=== PATIENT | male | born 1965 | race American Indian/Alaskan Native ===

== ENCOUNTER 2018-11-07 14:57 | Emergency (ER) | payer MEDICARE, OTHER ==
--- NOTE | 2018-11-07 15:16 | Emergency Department Report ---
Blank Doc - Documentation Documentation: This is a 53-year-old male that presents with left elbow pain and swelling. Hx of gout. Denies any trauma. This initial assessment/diagnostic orders/clinical plan/treatment(s) is/are subject to change based on patient's health status, clinical progression and re- assessment by fellow clinical providers in the ED. Further treatment and workup at subsequent clinical providers discretion. Patient/guardians urged not to elope from the ED as their condition may be serious if not clinically assessed and managed. Initial orders include: 1- Patient sent to [facility] for further evaluation and treatment
--- NOTE | 2018-11-07 17:40 | Emergency Department Report ---
ED Extremity Problem HPI - General Chief complaint: Extremity Injury, Upper Stated complaint: L ELBOW PAIN/SWOLLEN Time Seen by Provider: 11/07/18 15:15 Source: patient Mode of arrival: Ambulatory Limitations: No Limitations - History of Present Illness Initial comments: Patient is a 53-year-old male who presents emergency room with complaints of left elbow pain and edema that began 2 days ago. He states he has a past medical history of gout and last had a flare 3 months ago in his foot. He does not report any fever, injury, trauma, fall, numbness or weakness. He denies any allergies to medications. He has a past medical history of HTN and NM. - Related Data Home Medications Medication Instructions Recorded Confirmed Last Taken Fluticasone [Flonase] 1 spray INTRANASAL QDAY 02/19/18 02/19/18 02/18/18 10:00 50mcq Lisinopril [Zestril] 40 day PO QDAY 02/19/18 02/19/18 02/18/18 10:00 amLODIPine 40 tab PO QDAY 02/19/18 02/19/18 02/18/18 10:00 Previous Rx's Medication Instructions Recorded Last Taken Type Aspirin EC 325 mg PO QDAY #30 tablet 02/21/18 Unknown Rx AtorvaSTATin [Lipitor] 40 mg PO QHS #30 tablet 02/21/18 Unknown Rx Clopidogrel [Plavix] 75 mg PO QDAY #30 tablet 02/21/18 Unknown Rx Metoprolol [Lopressor TAB] 50 mg PO BID #60 tablet 02/21/18 Unknown Rx Colchicine 0.6 mg PO DAILY 1 Days #3 capsule 11/07/18 Unknown Rx Indomethacin 50 mg PO TID #15 capsule 11/07/18 Unknown Rx predniSONE [Deltasone] 40 mg PO QDAY 5 Days #10 tab 11/07/18 Unknown Rx Allergies Allergy/AdvReac Type Severity Reaction Status Date / Time tuberculin,PPD,multi-puncture Allergy Rash Verified 02/19/18 05:26 ED Review of Systems ROS: Stated complaint: L ELBOW PAIN/SWOLLEN Other details as noted in HPI Comment: All other systems reviewed and negative ED Past Medical Hx - Past Medical History Hx Hypertension: Yes Hx Heart Attack/AMI: Yes (cardiac stent 2010) Hx Congestive Heart Failure: No Hx Diabetes: Yes Hx Asthma: No Hx COPD: No Additional medical history: Elevated Cholesterol - Surgical History Hx Coronary Stent: Yes (stent 2 in 2010) - Social History Smoking Status: Never Smoker Substance Use Type: Alcohol - Medications Home Medications: Home Medications Medication Instructions Recorded Confirmed Last Taken Type Fluticasone [Flonase] 1 spray INTRANASAL QDAY 02/19/18 02/19/18 02/18/18 10:00 History 50mcq Lisinopril [Zestril] 40 day PO QDAY 02/19/18 02/19/18 02/18/18 10:00 History amLODIPine 40 tab PO QDAY 02/19/18 02/19/18 02/18/18 10:00 History Aspirin EC 325 mg PO QDAY #30 tablet 02/21/18 Unknown Rx AtorvaSTATin [Lipitor] 40 mg PO QHS #30 tablet 02/21/18 Unknown Rx Clopidogrel [Plavix] 75 mg PO QDAY #30 tablet 02/21/18 Unknown Rx Metoprolol [Lopressor TAB] 50 mg PO BID #60 tablet 02/21/18 Unknown Rx Colchicine 0.6 mg PO DAILY 1 Days #3 capsule 11/07/18 Unknown Rx Indomethacin 50 mg PO TID #15 capsule 11/07/18 Unknown Rx predniSONE [Deltasone] 40 mg PO QDAY 5 Days #10 tab 11/07/18 Unknown Rx ED Physical Exam - General Limitations: No Limitations General appearance: alert, in no apparent distress - Head Head exam: Present: atraumatic, normocephalic - Eye Eye exam: Present: normal appearance - ENT ENT exam: Present: mucous membranes moist - Extremities Exam Extremities exam: Present: other (edema to the left elbow with small amount of erythema, TTP over the left olecranon process, FROM of the left elbow with some discomfort with flexion, no increased warmth ) - Neurological Exam Neurological exam: Present: alert, oriented X3 - Psychiatric Psychiatric exam: Present: normal affect, normal mood - Skin Skin exam: Present: warm, dry, intact ED Course Vital Signs 11/07/18 11/07/18 11/07/18 15:03 15:06 17:44 Temperature 98.4 F Pulse Rate 85 81 Respiratory 16 16 Rate Blood Pressure 173/113 Blood Pressure 139/91 140/90 [Right] O2 Sat by Pulse 96 99 Oximetry ED Medical Decision Making - Lab Data Vital Signs 11/07/18 11/07/18 11/07/18 15:03 15:06 17:44 Temperature 98.4 F Pulse Rate 85 81 Respiratory 16 16 Rate Blood Pressure 173/113 Blood Pressure 139/91 140/90 [Right] O2 Sat by Pulse 96 99 Oximetry - Medical Decision Making Patient is a 53-year-old male who presents emergency room with complaints of left elbow pain and edema that began 2 days ago. He states he has a past medical history of gout and last had a flare 3 months ago in his foot. He does not report any fever, injury, trauma, fall, numbness or weakness. He denies any allergies to medications. He has a past medical history of HTN and NM. on exam: edema to the left elbow with small amount of erythema, TTP over the left olecranon process, FROM of the left elbow with some discomfort with flexion, no increased warmth. examination consistent with gout present in the left elbow, pt has ROM of the joint, unlikely to be septic joint given no increased warmth and mobility. pt given prescription for indomethacin, colchicine, and prednisone. advised to please take medication as prescribed. Follow up with your primary care doctor in the next 2-3 days for reevaluation. Return to the emergency room for any new or worsening symptoms. - Differential Diagnosis gout, bursitis, arthritis, septic arthritis Critical care attestation.: If time is entered above; I have spent that time in minutes in the direct care of this critically ill patient, excluding procedure time. ED Disposition Clinical Impression: Gout of left elbow Qualifiers: Gout etiology: unspecified cause Chronicity: acute Qualified Code(s): M10.9 - Gout, unspecified Disposition: DC-01 TO HOME OR SELFCARE Is pt being admited?: No Does the pt Need Aspirin: No Condition: Stable Instructions: Acute Gouty Arthritis (ED) Additional Instructions: Please take medication as prescribed. Follow up with your primary care doctor in the next 2-3 days for reevaluation. Return to the emergency room for any new or worsening symptoms. Prescriptions: Colchicine 0.6 mg PO DAILY 1 Days #3 capsule predniSONE [Deltasone] 40 mg PO QDAY 5 Days #10 tab Indomethacin 50 mg PO TID #15 capsule Referrals: PRIMARY CARE, [Referring] - 2-3 Days Time of Disposition: 17:37 Print Language: CYMRAES
[2018-11-07 17:45] VITALS: BP 140/90
== END 2018-11-07 17:44 | disposition home or self-care (01) ==
LOC: ED 14:57
DX: M10.022 Idiopathic gout, left elbow (principal); I10 Essential (primary) hypertension; I25.2 Old myocardial infarction; E11.9 Type 2 diabetes mellitus without complications; E78.00 Pure hypercholesterolemia, unspecified; Z95.1 Presence of aortocoronary bypass graft; Z79.82 Long term (current) use of aspirin; Z79.899 Other long term (current) drug therapy; Z88.8 Allergy status to other drugs, medicaments and biological substances
CPT/HCPCS: 99282

== ENCOUNTER 2019-07-09 18:02 | Emergency (ER) | payer MEDICARE | END 2019-07-09 21:10 | disposition left against medical advice (07) | LOC: ED 18:02 | DX: M25.572 Pain in left ankle and joints of left foot (principal); Z53.21 Procedure and treatment not carried out due to patient leaving prior to being seen by health care provider ==